=== PATIENT | male | born 1945 | race African-American/Black ===

== ENCOUNTER 2020-06-24 12:15 | Inpatient (IN) ==
[2020-06-24] MEDS ORDERED: Dexamethasone 4 MG/ML VIAL IVP ONE (12:34)
[2020-06-24] MEDS ORDERED: Ipratropium/Albuterol Neb 3 ML IH ONE (12:34)
[2020-06-24 13:08] LABS: Basophils % 0.3 %; Hematocrit 47.6 % (37.5-50.1); Hemoglobin 15.4 g/dL (12.9-16.9); Immature Granulocytes % 0.6 % (0-4); Lymphocytes # 0.6 K/mcL (0.6-4.6); Lymphocytes % 7.9 %; Mean Corpuscular HGB Conc 32.4 g/dL (31.6-35.5); Mean Corpuscular Hemoglobin 28.8 pg (28.0-33.3); Mean Corpuscular Volume 89.1 fL (83.0-100.0); Mean Platelet Volume 10.6 fL (9.4-12.4); Monocytes # 0.4 K/mcL (0.0-1.3); Monocytes % 4.9 %; Neutrophils # 6.9 K/mcL (1.6-8.9); Platelet Count 236 K/mcL (140-400); Red Blood Count 5.34 M/mcL (4.19-5.50); Segmented Neutrophils % 86.3 %
[2020-06-24 13:24] LABS: INR 1.1; Prothrombin Time 12.7 Seconds (9.4-12.1)
[2020-06-24 13:26] LABS: Activated Partial Thrombo Time 24.2 Seconds (26.0-36.0)
[2020-06-24 13:33] LABS: Bilirubin,Urine Negative (Negative); Blood,Urine Negative (Negative); Clarity,Urine Clear (Clear); Color,Urine Yellow (Yellow); Glucose,Urine (UA) Normal (Normal); Ketones,Urine Negative (Negative); Leukocyte Esterase,Urine Negative (Negative); Mucus,Urine Few per lpf (None-Few); Nitrite,Urine Negative (Negative); Protein,Urine 70 mg/dL (Neg-Trace); RBC,Urine 0-3 per hpf (0-3); Urobilinogen,Urine Normal (Normal); WBC,Urine 0-3 per hpf (0-3)
[2020-06-24 13:39] LABS: Alanine Aminotransferase 91 Units/L (7-52); Albumin 3.7 g/dL (3.5-5.7); Albumin/Globulin Ratio 1.2 (1.1-2.2); Alkaline Phosphatase 73 Units/L (34-104); Aspartate Amino Transferase 73 Units/L (13-39); BUN/Creatinine Ratio 13 (6-26); Bilirubin,Direct 0.2 mg/dL (0.0-0.2); Bilirubin,Indirect 0.5 mg/dL (0.0-1.0); Bilirubin,Total 0.7 mg/dL (0.3-1.0); Blood Urea Nitrogen 15 mg/dL (8-23); C-Reactive Protein 75 mg/L (Less than 10); Calcium 8.6 mg/dL (8.6-10.3); Carbon Dioxide 28 mEq/L (23-29); Chloride 96 mEq/L (98-107); Globulin 3.2 g/dL (2.4-3.5); Glucose 158 mg/dL (70-105); Lactate Dehydrogenase 366 Units/L (140-271); Magnesium 1.8 mg/dL (1.6-2.6); Osmolality,Calculated 282 (280-300); Phosphorous 1.9 mg/dL (2.7-4.5); Potassium 3.6 mEq/L (3.5-5.1); Sodium 134 mEq/L (136-145); Total Protein 6.9 g/dL (6.4-8.9); Troponin I < 0.03 ng/mL (< 0.04); eGFR For African Americans > 60 (> 60); eGFR For Non-African Americans > 60 (> 60)
[2020-06-24 13:50] LABS: Ferritin 475 ng/mL (20-250)
[2020-06-24] MEDS ORDERED: Ondansetron 4 MG/2 ML VIAL IVP PRN (16:49)
[2020-06-24] MEDS ORDERED: Naloxone 0.4 MG/ML INJ IVP PRN (16:49)
[2020-06-24] MEDS ORDERED: Dextrose Gel 15 GM/37.5 ML TUBE PO PRN ×2 (16:52)
[2020-06-24] MEDS ORDERED: *HR* Dextrose 50 % in Water (Vial) 50 ML VIAL IVP PRN (16:52)
[2020-06-24] MEDS ORDERED: D5% in Water 1,000 ML IVC PRN (16:52)
[2020-06-24 17:57] LABS: Magnesium 1.9 mg/dL (1.6-2.6); Phosphorous 3.2 mg/dL (2.7-4.5)
[2020-06-24] MEDS: Dexamethasone 4 MG/ML VIAL IVP SCH (18:47)
[2020-06-24] MEDS: Azithromycin 500 MG in D5% in Water 250 ML IVPB SCH (18:52)
[2020-06-24 19:32] LABS: Estimated Average Glucose 180 mg/dl; Hemoglobin A1C 7.9 %
[2020-06-24] MEDS: Ipratropium 1 PUFF INHALER IH SCH (20:20)
[2020-06-24] MEDS: Insulin LISPRO 300 UNITS/3 ML VIAL SUBQ SCH (21:07)
[2020-06-25] MEDS: Ipratropium 1 PUFF INHALER IH SCH ×7 (00:32→23:54)
[2020-06-25 01:17] LABS: Basophils % 0.3 %; Hematocrit 46.3 % (37.5-50.1); Hemoglobin 15.5 g/dL (12.9-16.9); Immature Granulocytes % 0.5 % (0-4); Lymphocytes # 0.6 K/mcL (0.6-4.6); Lymphocytes % 10.8 %; Mean Corpuscular HGB Conc 33.5 g/dL (31.6-35.5); Mean Corpuscular Hemoglobin 29.5 pg (28.0-33.3); Mean Platelet Volume 10.5 fL (9.4-12.4); Monocytes # 0.4 K/mcL (0.0-1.3); Monocytes % 6.3 %; Neutrophils # 4.7 K/mcL (1.6-8.9); Platelet Count 260 K/mcL (140-400); Red Blood Count 5.26 M/mcL (4.19-5.50); Segmented Neutrophils % 82.1 %; White Blood Count 5.7 K/mcL (4.3-11.1)
[2020-06-25 01:31] LABS: Alanine Aminotransferase 93 Units/L (7-52); Albumin 3.6 g/dL (3.5-5.7); Albumin/Globulin Ratio 1.2 (1.1-2.2); Alkaline Phosphatase 70 Units/L (34-104); Aspartate Amino Transferase 67 Units/L (13-39); BUN/Creatinine Ratio 17 (6-26); Bilirubin,Total 0.5 mg/dL (0.3-1.0); Blood Urea Nitrogen 18 mg/dL (8-23); Calcium 8.7 mg/dL (8.6-10.3); Carbon Dioxide 27 mEq/L (23-29); Chloride 97 mEq/L (98-107); Chol/HDL Ratio 5.7 (0-4.9); Cholesterol 136 mg/dL (< 200); Globulin 3.1 g/dL (2.4-3.5); Glucose 242 mg/dL (70-105); HDL Cholesterol 24 mg/dL (40-59); LDL Cholesterol,Calculated 80 mg/dL (< 100); Osmolality,Calculated 284 (280-300); Potassium 3.9 mEq/L (3.5-5.1); Sodium 132 mEq/L (136-145); Total Protein 6.7 g/dL (6.4-8.9); Triglycerides 161 mg/dL (< 150); eGFR For African Americans > 60 (> 60); eGFR For Non-African Americans > 60 (> 60)
[2020-06-25 01:55] LABS: Platelet Estimate Normal (Normal); Toxic Granulation Present (Not Present)
[2020-06-25] MEDS: *HR* Enoxaparin 40 MG/0.4 ML SYRINGE SQ SCH (06:11)
[2020-06-25] MEDS: Insulin LISPRO 300 UNITS/3 ML VIAL SUBQ SCH ×4 (08:58→21:02)
[2020-06-25] MEDS: Dexamethasone 4 MG/ML VIAL IVP SCH (08:58)
[2020-06-25] MEDS: Azithromycin 500 MG in D5% in Water 250 ML IVPB SCH (16:36)
[2020-06-25] MEDS ORDERED: Benzonatate 100 MG CAPSULE PO PRN (18:13)
[2020-06-25 23:01] LABS: Hepatitis B Surface Antigen Nonreactive (Nonreactive)
[2020-06-25 23:31] LABS: Hepatitis C Virus Antibody Nonreactive (Nonreactive)
[2020-06-25 23:32] LABS: Hepatitis B Core IgM Nonreactive (Nonreactive)
[2020-06-25 23:33] LABS: Hepatitis A Antibody IgM Nonreactive (Nonreactive)
[2020-06-26] MEDS: Ipratropium 1 PUFF INHALER IH SCH ×6 (04:19→23:48)
[2020-06-26] MEDS: *HR* Enoxaparin 40 MG/0.4 ML SYRINGE SQ SCH (05:24)
[2020-06-26 05:37] LABS: Basophils % 0.3 %; Hemoglobin 15.7 g/dL (12.9-16.9); Lymphocytes % 7.6 %; Mean Corpuscular HGB Conc 33.4 g/dL (31.6-35.5); Mean Corpuscular Hemoglobin 28.9 pg (28.0-33.3); Mean Corpuscular Volume 86.6 fL (83.0-100.0); Mean Platelet Volume 10.2 fL (9.4-12.4); Monocytes # 0.9 K/mcL (0.0-1.3); Monocytes % 6.8 %; Neutrophils # 11.4 K/mcL (1.6-8.9); Platelet Count 302 K/mcL (140-400); Red Blood Count 5.43 M/mcL (4.19-5.50); Red Cell Distribution Width 12.9 % (11.5-14.5); Segmented Neutrophils % 84.3 %; White Blood Count 13.5 K/mcL (4.3-11.1)
[2020-06-26 06:22] LABS: Alanine Aminotransferase 111 Units/L (7-52); Albumin 3.5 g/dL (3.5-5.7); Albumin/Globulin Ratio 1.1 (1.1-2.2); Alkaline Phosphatase 69 Units/L (34-104); Aspartate Amino Transferase 63 Units/L (13-39); BUN/Creatinine Ratio 21 (6-26); Bilirubin,Total 0.6 mg/dL (0.3-1.0); Blood Urea Nitrogen 21 mg/dL (8-23); Calcium 8.7 mg/dL (8.6-10.3); Carbon Dioxide 24 mEq/L (23-29); Chloride 100 mEq/L (98-107); Globulin 3.1 g/dL (2.4-3.5); Glucose 149 mg/dL (70-105); Osmolality,Calculated 284 (280-300); Potassium 3.7 mEq/L (3.5-5.1); Sodium 134 mEq/L (136-145); Total Protein 6.6 g/dL (6.4-8.9); eGFR For African Americans > 60 (> 60); eGFR For Non-African Americans > 60 (> 60)
[2020-06-26] MEDS: Insulin LISPRO 300 UNITS/3 ML VIAL SUBQ SCH ×4 (08:37→21:07)
[2020-06-26] MEDS: Losartan/HCTZ 50-12.5 TABLET PO SCH (08:41)
[2020-06-26] MEDS: Dexamethasone 4 MG/ML VIAL IVP SCH (08:41)
[2020-06-26] MEDS: Azithromycin 500 MG in D5% in Water 250 ML IVPB SCH (17:23)
[2020-06-26] MEDS ORDERED: Isovue-370 500 ML BOTTLE IVP ONE (19:06)
[2020-06-27] MEDS: Ipratropium 1 PUFF INHALER IH SCH ×5 (04:00→20:15)
[2020-06-27] MEDS: *HR* Enoxaparin 40 MG/0.4 ML SYRINGE SQ SCH (05:29)
[2020-06-27 06:06] LABS: Basophils # 0.1 K/mcL (0.0-0.2); Basophils % 0.4 %; Eosinophils % 0.1 %; Hematocrit 47.7 % (37.5-50.1); Hemoglobin 15.6 g/dL (12.9-16.9); Immature Granulocytes % 1.5 % (0-4); Lymphocytes # 1.2 K/mcL (0.6-4.6); Lymphocytes % 9.4 %; Mean Corpuscular HGB Conc 32.7 g/dL (31.6-35.5); Mean Corpuscular Hemoglobin 28.5 pg (28.0-33.3); Mean Platelet Volume 10.3 fL (9.4-12.4); Monocytes # 0.9 K/mcL (0.0-1.3); Monocytes % 7.3 %; Neutrophils # 10.1 K/mcL (1.6-8.9); Platelet Count 327 K/mcL (140-400); Red Blood Count 5.48 M/mcL (4.19-5.50); Segmented Neutrophils % 81.3 %
[2020-06-27 06:22] LABS: Alanine Aminotransferase 102 Units/L (7-52); Albumin 3.5 g/dL (3.5-5.7); Albumin/Globulin Ratio 1.2 (1.1-2.2); Alkaline Phosphatase 71 Units/L (34-104); Aspartate Amino Transferase 42 Units/L (13-39); BUN/Creatinine Ratio 22 (6-26); Bilirubin,Total 0.6 mg/dL (0.3-1.0); Blood Urea Nitrogen 22 mg/dL (8-23); Calcium 8.7 mg/dL (8.6-10.3); Carbon Dioxide 26 mEq/L (23-29); Chloride 101 mEq/L (98-107); Glucose 136 mg/dL (70-105); Osmolality,Calculated 283 (280-300); Potassium 3.7 mEq/L (3.5-5.1); Sodium 134 mEq/L (136-145); Total Protein 6.5 g/dL (6.4-8.9); eGFR For African Americans > 60 (> 60); eGFR For Non-African Americans > 60 (> 60)
[2020-06-27 06:27] LABS: White Blood Count 12.4 K/mcL (4.3-11.1)
[2020-06-27] MEDS: Insulin LISPRO 300 UNITS/3 ML VIAL SUBQ SCH ×4 (08:00→21:19)
[2020-06-27] MEDS: Losartan/HCTZ 50-12.5 TABLET PO SCH (08:02)
[2020-06-27] MEDS: Dexamethasone 4 MG/ML VIAL IVP SCH (08:02)
[2020-06-27] MEDS ORDERED: Furosemide 20 MG/2 ML VIAL IVP ONE (14:31)
[2020-06-27] MEDS: Azithromycin 250 MG TABLET PO SCH (18:18)
[2020-06-27] MEDS ORDERED: Insulin DETEMIR 100 UNIT/ML X5UNITS SUBQ SCH (21:00)
[2020-06-28] MEDS: Ipratropium 1 PUFF INHALER IH SCH ×7 (00:01→23:40)
[2020-06-28] MEDS: *HR* Enoxaparin 40 MG/0.4 ML SYRINGE SQ SCH (04:48)
[2020-06-28 06:36] LABS: Basophils # 0.1 K/mcL (0.0-0.2); Basophils % 0.5 %; Eosinophils # 0.1 K/mcL (0.0-0.6); Eosinophils % 0.4 %; Hematocrit 49.7 % (37.5-50.1); Hemoglobin 16.5 g/dL (12.9-16.9); Immature Granulocytes % 1.9 % (0-4); Lymphocytes # 1.2 K/mcL (0.6-4.6); Lymphocytes % 9.2 %; Mean Corpuscular HGB Conc 33.2 g/dL (31.6-35.5); Mean Corpuscular Hemoglobin 29.3 pg (28.0-33.3); Mean Corpuscular Volume 88.3 fL (83.0-100.0); Mean Platelet Volume 9.9 fL (9.4-12.4); Monocytes # 0.9 K/mcL (0.0-1.3); Monocytes % 6.7 %; Neutrophils # 10.7 K/mcL (1.6-8.9); Platelet Count 355 K/mcL (140-400); Red Blood Count 5.63 M/mcL (4.19-5.50); Red Cell Distribution Width 12.9 % (11.5-14.5); Segmented Neutrophils % 81.3 %; White Blood Count 13.2 K/mcL (4.3-11.1)
[2020-06-28 06:55] LABS: Alanine Aminotransferase 82 Units/L (7-52); Albumin 3.6 g/dL (3.5-5.7); Albumin/Globulin Ratio 1.1 (1.1-2.2); Alkaline Phosphatase 72 Units/L (34-104); Aspartate Amino Transferase 33 Units/L (13-39); BUN/Creatinine Ratio 18 (6-26); Bilirubin,Total 0.8 mg/dL (0.3-1.0); Blood Urea Nitrogen 22 mg/dL (8-23); Calcium 8.8 mg/dL (8.6-10.3); Carbon Dioxide 29 mEq/L (23-29); Chloride 97 mEq/L (98-107); Globulin 3.3 g/dL (2.4-3.5); Glucose 97 mg/dL (70-105); Osmolality,Calculated 283 (280-300); Potassium 3.5 mEq/L (3.5-5.1); Sodium 135 mEq/L (136-145); Total Protein 6.9 g/dL (6.4-8.9); eGFR For African Americans > 60 (> 60); eGFR For Non-African Americans 60 (> 60)
[2020-06-28] MEDS ORDERED: Furosemide 40 MG/4 ML VIAL IVP SCH (09:00)
[2020-06-28] MEDS: Dexamethasone Sodium Phos/PF 10 MG/ML VIAL IVP SCH (09:16)
[2020-06-28] MEDS: Losartan/HCTZ 50-12.5 TABLET PO SCH (09:17)
[2020-06-28] MEDS: Insulin LISPRO 300 UNITS/3 ML VIAL SUBQ SCH ×5 (09:18→21:07)
[2020-06-28] MEDS: Loratadine 10 MG TABLET PO SCH (09:18)
[2020-06-28 09:48] LABS: Fibrinogen 582 mg/dL (169-393)
[2020-06-28 09:57] LABS: D-Dimer 6093 ng/mLFEU (0-500)
[2020-06-28] MEDS: Furosemide 40 MG/4 ML VIAL IVP SCH (17:22)
[2020-06-28] MEDS: *HR* Enoxaparin 120 MG/0.8 ML SYRINGE SQ SCH (17:23)
[2020-06-28] MEDS: *HR* LORazepam 0.5 MG TABLET PO PRN (17:23)
[2020-06-28] MEDS: Azithromycin 250 MG TABLET PO SCH (17:46)
[2020-06-28] MEDS: Insulin DETEMIR 100 UNIT/ML X5UNITS SUBQ SCH (21:06)
[2020-06-29 02:39] LABS: Basophils # 0.1 K/mcL (0.0-0.2); Basophils % 0.4 %; Eosinophils % 0.1 %; Hematocrit 48.4 % (37.5-50.1); Hemoglobin 16.3 g/dL (12.9-16.9); Immature Granulocytes % 3.5 % (0-4); Lymphocytes # 0.9 K/mcL (0.6-4.6); Lymphocytes % 6.4 %; Mean Corpuscular HGB Conc 33.7 g/dL (31.6-35.5); Mean Corpuscular Hemoglobin 29.1 pg (28.0-33.3); Mean Corpuscular Volume 86.3 fL (83.0-100.0); Mean Platelet Volume 9.8 fL (9.4-12.4); Monocytes # 0.9 K/mcL (0.0-1.3); Monocytes % 6.3 %; Neutrophils # 11.5 K/mcL (1.6-8.9); Platelet Count 387 K/mcL (140-400); Red Blood Count 5.61 M/mcL (4.19-5.50); Red Cell Distribution Width 12.9 % (11.5-14.5); Segmented Neutrophils % 83.3 %; White Blood Count 13.8 K/mcL (4.3-11.1)
[2020-06-29 02:59] LABS: Alanine Aminotransferase 72 Units/L (7-52); Albumin 3.7 g/dL (3.5-5.7); Albumin/Globulin Ratio 1.1 (1.1-2.2); Alkaline Phosphatase 74 Units/L (34-104); Aspartate Amino Transferase 25 Units/L (13-39); BUN/Creatinine Ratio 23 (6-26); Bilirubin,Total 0.8 mg/dL (0.3-1.0); Blood Urea Nitrogen 28 mg/dL (8-23); Calcium 9.1 mg/dL (8.6-10.3); Carbon Dioxide 23 mEq/L (23-29); Chloride 97 mEq/L (98-107); Globulin 3.3 g/dL (2.4-3.5); Glucose 221 mg/dL (70-105); Osmolality,Calculated 286 (280-300); Potassium 3.6 mEq/L (3.5-5.1); Sodium 132 mEq/L (136-145); eGFR For African Americans > 60 (> 60); eGFR For Non-African Americans 60 (> 60)
[2020-06-29] MEDS: Ipratropium 1 PUFF INHALER IH SCH ×6 (04:28→23:53)
[2020-06-29] MEDS: *HR* Enoxaparin 120 MG/0.8 ML SYRINGE SQ SCH ×2 (06:16→16:37)
[2020-06-29] MEDS: Insulin LISPRO 300 UNITS/3 ML VIAL SUBQ SCH ×4 (08:58→20:27)
[2020-06-29] MEDS: *HR* LORazepam 0.5 MG TABLET PO PRN ×2 (09:20→21:38)
[2020-06-29] MEDS: Furosemide 40 MG/4 ML VIAL IVP SCH ×2 (09:25→20:28)
[2020-06-29] MEDS: Dexamethasone Sodium Phos/PF 10 MG/ML VIAL IVP SCH (09:25)
[2020-06-29] MEDS: Loratadine 10 MG TABLET PO SCH (09:25)
[2020-06-29] MEDS: Cholecalciferol (D-3) 1,000 UNIT (25MCG) TABLET PO SCH (09:26)
[2020-06-29] MEDS: Losartan/HCTZ 50-12.5 TABLET PO SCH (09:27)
[2020-06-29] MEDS: MOM Conc 10 ML UD.LIQ PO PRN (09:49)
[2020-06-29] MEDS: Ascorbic Acid 500 MG TABLET PO SCH (12:10)
[2020-06-29] MEDS: Multivit/Ca/Min/Fe/FA 1 TAB TABLET PO SCH (12:10)
[2020-06-29] MEDS: Azithromycin 250 MG TABLET PO SCH (16:37)
[2020-06-29] MEDS: polyethylene glycoL 3350 17 GM POWD.PACK PO PRN (18:02)
[2020-06-29] MEDS: Insulin DETEMIR 100 UNIT/ML X5UNITS SUBQ SCH (20:28)
[2020-06-29] MEDS: Melatonin 3 MG TABLET PO SCH (20:29)
[2020-06-30 02:35] LABS: Basophils # 0.1 K/mcL (0.0-0.2); Basophils % 0.3 %; Eosinophils % 0.1 %; Hematocrit 47.1 % (37.5-50.1); Hemoglobin 15.7 g/dL (12.9-16.9); Immature Granulocytes % 2.8 % (0-4); Lymphocytes % 6.1 %; Mean Corpuscular HGB Conc 33.3 g/dL (31.6-35.5); Mean Corpuscular Hemoglobin 28.4 pg (28.0-33.3); Mean Corpuscular Volume 85.3 fL (83.0-100.0); Monocytes # 0.8 K/mcL (0.0-1.3); Neutrophils # 13.6 K/mcL (1.6-8.9); Platelet Count 421 K/mcL (140-400); Red Blood Count 5.52 M/mcL (4.19-5.50); Red Cell Distribution Width 12.7 % (11.5-14.5); Segmented Neutrophils % 85.7 %; White Blood Count 15.9 K/mcL (4.3-11.1)
[2020-06-30 02:57] LABS: Alanine Aminotransferase 66 Units/L (7-52); Albumin 3.4 g/dL (3.5-5.7); Alkaline Phosphatase 68 Units/L (34-104); Aspartate Amino Transferase 26 Units/L (13-39); BUN/Creatinine Ratio 24 (6-26); Bilirubin,Total 0.9 mg/dL (0.3-1.0); Blood Urea Nitrogen 28 mg/dL (8-23); Calcium 8.7 mg/dL (8.6-10.3); Carbon Dioxide 25 mEq/L (23-29); Chloride 96 mEq/L (98-107); Globulin 3.4 g/dL (2.4-3.5); Glucose 178 mg/dL (70-105); Osmolality,Calculated 282 (280-300); Potassium 3.7 mEq/L (3.5-5.1); Sodium 131 mEq/L (136-145); Total Protein 6.8 g/dL (6.4-8.9); eGFR For African Americans > 60 (> 60); eGFR For Non-African Americans > 60 (> 60)
[2020-06-30] MEDS: Ipratropium 1 PUFF INHALER IH SCH ×6 (03:50→23:00)
[2020-06-30] MEDS: *HR* Enoxaparin 120 MG/0.8 ML SYRINGE SQ SCH ×2 (06:22→17:11)
[2020-06-30 08:28] LABS: Fibrinogen 598 mg/dL (169-393)
[2020-06-30] MEDS: Insulin LISPRO 300 UNITS/3 ML VIAL SUBQ SCH ×4 (08:30→20:03)
[2020-06-30 08:36] LABS: D-Dimer 3851 ng/mLFEU (0-500)
[2020-06-30] MEDS: Loratadine 10 MG TABLET PO SCH (08:52)
[2020-06-30] MEDS: Multivit/Ca/Min/Fe/FA 1 TAB TABLET PO SCH (08:52)
[2020-06-30] MEDS: Cholecalciferol (D-3) 1,000 UNIT (25MCG) TABLET PO SCH (08:53)
[2020-06-30] MEDS: Ascorbic Acid 500 MG TABLET PO SCH (08:53)
[2020-06-30] MEDS: Dexamethasone Sodium Phos/PF 10 MG/ML VIAL IVP SCH (08:55)
[2020-06-30] MEDS: Furosemide 40 MG/4 ML VIAL IVP SCH (08:58)
[2020-06-30] MEDS ORDERED: (Zinc Acetate [Galzin] 25 MG) PO SCH (09:00)
[2020-06-30] MEDS: polyethylene glycoL 3350 17 GM POWD.PACK PO PRN (20:03)
[2020-06-30] MEDS: Melatonin 3 MG TABLET PO SCH (20:03)
[2020-06-30] MEDS: MOM Conc 10 ML UD.LIQ PO PRN (20:03)
[2020-06-30] MEDS: Insulin DETEMIR 100 UNIT/ML X5UNITS SUBQ SCH (20:05)
[2020-06-30] MEDS: *HR* LORazepam 0.5 MG TABLET PO PRN (21:40)
[2020-07-01 03:58] LABS: BUN/Creatinine Ratio 23 (6-26); Blood Urea Nitrogen 24 mg/dL (8-23); Calcium 8.5 mg/dL (8.6-10.3); Carbon Dioxide 27 mEq/L (23-29); Chloride 96 mEq/L (98-107); Glucose 201 mg/dL (70-105); Magnesium 2.3 mg/dL (1.6-2.6); Osmolality,Calculated 282 (280-300); Potassium 3.7 mEq/L (3.5-5.1); Sodium 131 mEq/L (136-145); eGFR For African Americans > 60 (> 60); eGFR For Non-African Americans > 60 (> 60)
[2020-07-01] MEDS: Ipratropium 1 PUFF INHALER IH SCH ×6 (04:19→23:29)
[2020-07-01] MEDS: *HR* Enoxaparin 120 MG/0.8 ML SYRINGE SQ SCH (06:12)
[2020-07-01] MEDS: Insulin LISPRO 300 UNITS/3 ML VIAL SUBQ SCH ×4 (07:48→20:18)
[2020-07-01] MEDS: Cholecalciferol (D-3) 1,000 UNIT (25MCG) TABLET PO SCH (07:53)
[2020-07-01] MEDS: Zinc Sulfate 220 MG CAPSULE PO SCH (07:53)
[2020-07-01] MEDS: Loratadine 10 MG TABLET PO SCH (07:53)
[2020-07-01] MEDS: Multivit/Ca/Min/Fe/FA 1 TAB TABLET PO SCH (07:53)
[2020-07-01] MEDS: Ascorbic Acid 500 MG TABLET PO SCH (07:53)
[2020-07-01] MEDS: Furosemide 40 MG/4 ML VIAL IVP SCH (07:54)
[2020-07-01] MEDS: Dexamethasone Sodium Phos/PF 10 MG/ML VIAL IVP SCH (07:55)
[2020-07-01] MEDS: Lactobacillus 1 EACH CAP.SPRINK PO SCH (13:26)
[2020-07-01] MEDS: Sennosides/Docusate Sodium TABLET PO SCH ×2 (13:26→20:18)
[2020-07-01] MEDS: Melatonin 3 MG TABLET PO SCH (20:18)
[2020-07-01] MEDS: Insulin DETEMIR 100 UNIT/ML X5UNITS SUBQ SCH (20:18)
[2020-07-01] MEDS: *HR* LORazepam 0.5 MG TABLET PO PRN (22:04)
[2020-07-02] MEDS: Ipratropium 1 PUFF INHALER IH SCH ×6 (03:14→23:49)
[2020-07-02] MEDS: *HR* Enoxaparin 40 MG/0.4 ML SYRINGE SQ SCH (06:00)
[2020-07-02] MEDS ORDERED: Acetaminophen 325 MG TABLET PO ONE (06:41)
[2020-07-02] MEDS: Zinc Sulfate 220 MG CAPSULE PO SCH (08:46)
[2020-07-02] MEDS: Lactobacillus 1 EACH CAP.SPRINK PO SCH (08:46)
[2020-07-02] MEDS: Multivit/Ca/Min/Fe/FA 1 TAB TABLET PO SCH (08:46)
[2020-07-02] MEDS: Ascorbic Acid 500 MG TABLET PO SCH (08:46)
[2020-07-02] MEDS: Sennosides/Docusate Sodium TABLET PO SCH ×2 (08:46→21:15)
[2020-07-02] MEDS: Loratadine 10 MG TABLET PO SCH (08:46)
[2020-07-02] MEDS: Cholecalciferol (D-3) 1,000 UNIT (25MCG) TABLET PO SCH (08:46)
[2020-07-02] MEDS: Insulin LISPRO 300 UNITS/3 ML VIAL SUBQ SCH ×4 (08:47→21:15)
[2020-07-02] MEDS: Furosemide 40 MG/4 ML VIAL IVP SCH (08:47)
[2020-07-02] MEDS: Dexamethasone Sodium Phos/PF 10 MG/ML VIAL IVP SCH (08:47)
[2020-07-02] MEDS ORDERED: MOM Conc 10 ML UD.LIQ PO PRN (12:59)
[2020-07-02] MEDS ORDERED: polyethylene glycoL 3350 17 GM POWD.PACK PO PRN (12:59)
[2020-07-02] MEDS: Melatonin 3 MG TABLET PO SCH (21:15)
[2020-07-02] MEDS: Insulin DETEMIR 100 UNIT/ML X5UNITS SUBQ SCH (21:15)
[2020-07-03] MEDS: *HR* LORazepam 0.5 MG TABLET PO PRN (00:52)
[2020-07-03 03:10] LABS: BUN/Creatinine Ratio 22 (6-26); Blood Urea Nitrogen 22 mg/dL (8-23); Calcium 8.7 mg/dL (8.6-10.3); Carbon Dioxide 27 mEq/L (23-29); Chloride 97 mEq/L (98-107); Glucose 278 mg/dL (70-105); Magnesium 2.2 mg/dL (1.6-2.6); Osmolality,Calculated 287 (280-300); Potassium 3.6 mEq/L (3.5-5.1); Sodium 132 mEq/L (136-145); eGFR For African Americans > 60 (> 60); eGFR For Non-African Americans > 60 (> 60)
[2020-07-03] MEDS: Ipratropium 1 PUFF INHALER IH SCH ×3 (03:51→11:44)
[2020-07-03] MEDS: *HR* Enoxaparin 40 MG/0.4 ML SYRINGE SQ SCH (05:42)
[2020-07-03] MEDS: Cholecalciferol (D-3) 1,000 UNIT (25MCG) TABLET PO SCH (08:04)
[2020-07-03] MEDS: Lactobacillus 1 EACH CAP.SPRINK PO SCH (08:04)
[2020-07-03] MEDS: Ascorbic Acid 500 MG TABLET PO SCH (08:04)
[2020-07-03] MEDS: Loratadine 10 MG TABLET PO SCH (08:04)
[2020-07-03] MEDS: Sennosides/Docusate Sodium TABLET PO SCH (08:04)
[2020-07-03] MEDS: Multivit/Ca/Min/Fe/FA 1 TAB TABLET PO SCH (08:04)
[2020-07-03] MEDS: Zinc Sulfate 220 MG CAPSULE PO SCH (08:04)
[2020-07-03] MEDS: Insulin LISPRO 300 UNITS/3 ML VIAL SUBQ SCH ×2 (08:05→11:19)
[2020-07-03] MEDS ORDERED: Dexamethasone Sodium Phos/PF 10 MG/ML VIAL IVP SCH (09:00)
[2020-07-03 13:16] VITALS: BP 126/78
[2020-07-03] MEDS ORDERED: Lactobacillus 1 EACH CAP.SPRINK PO SCH (18:00)
== END 2020-07-03 14:54 | disposition home or self-care (01) | DRG 177 ==
LOC: EMEROOARM 12:15 → 2NENU 12:15 → SUATTDRO 06-25 19:51
PROVIDERS: ADMIT Student in an Organized Health Care Education/Training Program; ATTEND Internal Medicine